=== PATIENT | male | born 1960 | race Caucasian/White ===

== ENCOUNTER 2017-06-10 09:22 | Inpatient (IN) | payer MEDICAID ==
[2017-06-10] VITALS (8 sets, daily range): BP systolic 100–130; BP diastolic 61–75; PULSE 57–99; RESP 14–18; TEMP 97.5–97.9; O2SAT 96–100
[~2017-06-10] VITALS: Ht 177.8 cm; Wt 90.0 kg
[2017-06-10] MEDS ORDERED: ACETAMINOPHEN/HYDROcodone 325 MG/5 MG TAB PO ONE (11:15)
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
[2017-06-10] MEDS ORDERED: PROPOFOL 200 MG/20 ML AMP IV ONE (12:00)
[2017-06-10] MEDS ORDERED: BRIL90TA PO (12:10)
[2017-06-10] MEDS ORDERED: ASCO500C PO (12:10)
[2017-06-10] MEDS ORDERED: RAMI10CA PO (12:10)
[2017-06-10] MEDS ORDERED: ASPI-516 CHEW (12:10)
[2017-06-10] MEDS ORDERED: LIPI80TA PO (12:10)
[2017-06-10] MEDS ORDERED: FURO1TAB62 PO (12:10)
[2017-06-10] MEDS ORDERED: METO25TA3 PO (12:10)
[2017-06-10] MEDS ORDERED: SODIUM CHLORIDE 0.9% FLUSH 10 ML FLUSH IVF PRN (12:15)
[2017-06-10] MEDS ORDERED: MORPHINE SULFATE 2 MG/ML INJ IV PUSH ONE (12:30)
[2017-06-10] MEDS ORDERED: ONDANSETRON HCL 4 MG/2 ML VIAL IV PUSH ONE (12:30)
--- NOTE | 2017-06-10 12:40 | RADRPT ---
EXAM DATE/TIME: 06/10/2017 12:27 [facility] COMPARISON: No previous studies available for comparison. INDICATIONS : Evaluate for pneumonia, pnemothorax, or communicable disease. Pre op for finger surgery. MEDICAL HISTORY : Hypertension. Myocardial infarction. SURGICAL HISTORY : CABG. Cardiac cath. Coronary stent. ENCOUNTER: Initial ACUITY: 1 day PAIN SCORE: 0/10 LOCATION: Bilateral chest FINDINGS: A single view of the chest demonstrates the lungs to be symmetrically aerated with minimal atelectati c changes above the left hemidiaphragm. Lungs otherwise clear. No effusions.. The cardiomediastinal contours are unremarkable. Osseous structures are intact with a mild levoscoliosis of the dorsal spi ne which may be positional. Findings of prior CABG with intact median sternotomy wires. Anterior fixa tion of lower cervical spine. CONCLUSION: No acute cardiopulmonary process. Sky Bush MD on June 10, 2017 at 12:36 Board Certified Radiologist. This report was verified electronically.
[2017-06-10] MEDS ORDERED: SODIUM CHLOR 0.9% 1000 ML INJ 1,000 ML IV SCH (12:41)
[2017-06-10] MEDS ORDERED: ceFAZolin 2 GM PREMIX 50 ML IV ONE (12:45)
[2017-06-10] MEDS: SODIUM CHLOR 0.9% 1000 ML INJ 1,000 ML IV SCH ×2 (12:56→22:36)
[2017-06-10] MEDS ORDERED: SODIUM CHLORIDE 0.9% FLUSH 10 ML FLUSH IV FLUSH PRN (13:00)
[2017-06-10 13:01] LABS: AUTOMATED NEUTROPHIL # 5.6 TH/MM3 (1.8-7.7); BASOPHIL % 0.2 % (0.0-2.0); EOSINOPHIL # 0.1 TH/MM3 (0-0.4); EOSINOPHIL % 1.9 % (0.0-4.0); HEMOGLOBIN 16.5 GM/DL (13.0-17.0); LYMPH % 21.3 % (9.0-44.0); LYMPHOCYTE # 1.7 TH/MM3 (1.0-4.8); MEAN CELL VOLUME 94.2 FL (80.0-100.0); MEAN CORPUSCULAR HEMOGLOBIN 32.3 PG (27.0-34.0); MEAN CORPUSCULAR HGB CONC 34.3 % (32.0-36.0); MEAN PLATELET VOLUME 8.7 FL (7.0-11.0); MONO % 6.2 % (0.0-8.0); MONOCYTE # 0.5 TH/MM3 (0-0.9); NEUT % 70.4 % (16.0-70.0); PLATELET COUNT 156 TH/MM3 (150-450); RED CELL DISTRIBUTION WIDTH 14.4 % (11.6-17.2)
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
--- NOTE | 2017-06-10 13:11 | PD ---
Physical Exam Date Seen by Provider: Jun 10, 2017 Time Seen by Provider: 12:00 Narrative I, Dr. Rice, have reviewed the advance practice practitioner's documentation and am in agreement, met with the patient face to face, made the diagnosis, and the medical decision making was done by me. *My assessment and Findings: Patient seen and evaluated with PA, please see PA note for further details. Here sent in by Dr. Lopez because he needs surgery for open fourth digit distal phalanx fracture which is displaced. However, he needs to get medical clearance from cardiology for the OR. Laboratory Tests Test 06/10/17 12:35 Neutrophils (%) (Auto) 70.4 % (16.0-70.0) Last 24 hours Impressions Chest X-Ray 06/10/17 1212 Signed Impressions: Service Date/Time: Saturday, June 10, 2017 12:27 - CONCLUSION: No acute cardiopulmonary process. Sky Bush MD Finger X-Ray 06/10/17 1106 Signed Impressions: Service Date/Time: Saturday, June 10, 2017 11:30 - CONCLUSION: Fracture distal tuft fourth digit as above. Thierno Torres MD FACR Case was discussed with Dr. Waddell who accepts the case, patient to be medically admitted for OR treatments. Data Data Last Documented VS Vital Signs Date Time Temp Pulse Resp B/P (MAP) Pulse Ox O2 Delivery O2 Flow Rate FiO2 06/10/17 12:32 100 Room Air 06/10/17 09:27 97.8 81 16 Orders Orders Finger ([id number]) (06/10/17 11:06) Ice/Cold Pack (06/10/17 11:06) Electrocardiogram (06/10/17 12:12) Complete Blood Count With Diff (06/10/17 12:12) Comprehensive Metabolic Panel (06/10/17 12:12) Prothrombin Time / Inr (Pt) (06/10/17 12:12) Act Partial Throm Time (Ptt) (06/10/17 12:12) Urinalysis - C+S If Indicated (06/10/17 12:12) Type And Screen (06/10/17 12:12) Chest, Single Ap (06/10/17 12:12) Iv Access Insert/Monitor (06/10/17 12:12) Oximetry (06/10/17 12:12) Ecg Monitoring (06/10/17 12:12) Sodium Chloride 0.9% Flush (Ns Flush) (06/10/17 12:15) Diet Npo (06/10/17 Lunch) Support Splint (06/10/17 12:27) Ondansetron Inj (Zofran Inj) (06/10/17 12:30) Morphine Inj (Morphine Inj) (06/10/17 12:30) Cefazolin 2 Gm Premix (Ancef 2 Gm Premix (06/10/17 12:45) Sodium Chlor 0.9% 1000 Ml Inj (Ns 1000 M (06/10/17 12:41) Labs Laboratory Tests Test 06/10/17 12:35 White Blood Count 8.0 TH/MM3 Red Blood Count 5.10 MIL/MM3 Hemoglobin 16.5 GM/DL Hematocrit 48.0 % Mean Corpuscular Volume 94.2 FL Mean Corpuscular Hemoglobin 32.3 PG Mean Corpuscular Hemoglobin Concent 34.3 % Red Cell Distribution Width 14.4 % Platelet Count 156 TH/MM3 Mean Platelet Volume 8.7 FL Neutrophils (%) (Auto) 70.4 % Lymphocytes (%) (Auto) 21.3 % Monocytes (%) (Auto) 6.2 % Eosinophils (%) (Auto) 1.9 % Basophils (%) (Auto) 0.2 % Neutrophils # (Auto) 5.6 TH/MM3 Lymphocytes # (Auto) 1.7 TH/MM3 Monocytes # (Auto) 0.5 TH/MM3 Eosinophils # (Auto) 0.1 TH/MM3 Basophils # (Auto) 0.0 TH/MM3 CBC Comment DIFF FINAL Differential Comment [facility] Medical Record Reviewed: Yes Supervised Visit with BABATUNDE: Yes Diagnosis Primary Impression: Finger fracture, left Qualified Codes: S62.635A - Displaced fracture of distal phalanx of left ring finger, initial encounter for closed fracture Admitting Information Admitting Physician Requests: it Josue Rice MD Jun 10, 2017 13:11
[2017-06-10 13:24] LABS: PROTHROMBIN TIME - PATIENT 9.7 SEC (9.8-11.6)
[2017-06-10 13:26] LABS: ALKALINE PHOSPHATASE 142 U/L (45-117); TOTAL BILIRUBIN ADULT 0.5 MG/DL (0.2-1.0); TOTAL PROTEIN 8.4 GM/DL (6.4-8.2)
[2017-06-10 13:29] LABS: ALBUMIN 4.4 GM/DL (3.4-5.0); ALT (GPT) 16 U/L (12-78); AST (GOT) 26 U/L (15-37); BLOOD UREA NITROGEN 18 MG/DL (7-18); CALCIUM 9.2 MG/DL (8.5-10.1); CHLORIDE 104 MEQ/L (98-107); CREATININE 1.67 MG/DL (0.60-1.30); GLOMERULAR FILTRATION RATE 42 ML/MIN (>89); GLUCOSE,RANDOM 76 MG/DL (74-106); SODIUM (NA) 142 MEQ/L (136-145)
[2017-06-10] MEDS ORDERED: diphenhydrAMINE HCL 25 MG CAP PO PRN (13:45)
[2017-06-10] MEDS ORDERED: ONDANSETRON HCL 4 MG/2 ML VIAL IV PUSH PRN (13:45)
[2017-06-10] MEDS ORDERED: diphenhydrAMINE HCL 50 MG/ML VIAL IV PUSH PRN (13:45)
[2017-06-10] MEDS ORDERED: MAGNESIUM HYDROXIDE SUSP 30 ML CUP PO PRN (13:45)
[2017-06-10] MEDS ORDERED: ACETAMINOPHEN 325 MG TAB PO PRN (13:45)
[2017-06-10] MEDS ORDERED: BISACODYL 10 MG SUPP RECTAL PRN (13:45)
[2017-06-10] MEDS ORDERED: LACTULOSE SYRUP 20 GM/30 ML CUP PO PRN (13:45)
[2017-06-10] MEDS ORDERED: MORPHINE SULFATE 2 MG/ML INJ IV PUSH PRN (13:45)
[2017-06-10] MEDS ORDERED: SENNOSIDES 8.6 MG TAB PO PRN (13:45)
[2017-06-10] MEDS ORDERED: NALOXONE HCL 0.4 MG/ML AMP IV PUSH PRN ×2 (13:45)
[2017-06-10] MEDS ORDERED: MORPHINE SULFATE 4 MG/ML INJ IV PUSH PRN ×2 (14:00)
[2017-06-10] MEDS ORDERED: SODIUM CHLORID 0.9% 500 ML INJ 500 ML IV ONE (17:30)
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
[2017-06-10] MEDS ORDERED: LIDOCAINE HCL 1% PF 10 ML VIAL ONE (19:14)
[2017-06-10] MEDS ORDERED: NEOMYCIN/POLYMYXIN 1 ML G.U. IRRIGANT ONE (19:19)
[2017-06-10] MEDS ORDERED: RESP: ALBUTEROL 2.5 MG/3 ML NEB (PRN) NEB (19:30)
[2017-06-10] MEDS ORDERED: cloNIDine HCL 0.1 MG TAB PO PRN (19:30)
[2017-06-10] MEDS ORDERED: MIDAZOLAM HCL 2 MG/2 ML VIAL ONE (19:55)
[2017-06-10] MEDS ORDERED: fentaNYL CITRATE 250 MCG/5 ML AMP ONE (19:55)
[2017-06-10] MEDS ORDERED: LIDOCAINE HCL 2% 50 ML VIAL ONE (20:48)
[2017-06-10] MEDS: METOPROLOL TARTRATE 25 MG TAB PO SCH (21:00)
[2017-06-10] MEDS: DOCUSATE SODIUM 100 MG CAP PO SCH (21:00)
[2017-06-10] MEDS ORDERED: ATORVASTATIN 80 MG TAB PO SCH (21:00)
[2017-06-10] MEDS: TICAGRELOR 90 MG TAB PO SCH (21:00)
[2017-06-10] MEDS: SODIUM CHLORIDE 0.9% FLUSH 10 ML FLUSH IV FLUSH SCH (21:00)
[2017-06-10] MEDS ORDERED: DO NOT ADM ANY ANTICOAGULANT DRUGS PRN (21:34)
[2017-06-10] MEDS ORDERED: *ONDANSETRON 4 MG VIAL PERIprocedural Use ONLY ONE (21:50)
[2017-06-10] MEDS ORDERED: *morphine SULFATE 4 MG/ML PERIprocedure ONLY ONE (21:50)
--- NOTE | 2017-06-10 22:09 | PD.ORT.PN ---
Subjective Subjective Remarks Pain controlled in PACU Objective Vitals Vital Signs Date Time Temp Pulse Resp B/P (MAP) Pulse Ox O2 Delivery O2 Flow Rate FiO2 06/10/17 22:00 62 12 118/74 (89) 95 Nasal Cannula 3 06/10/17 21:45 65 12 125/79 (94) 95 Nasal Cannula 3 06/10/17 21:35 69 12 111/68 (82) 95 Nasal Cannula 3 06/10/17 21:34 98.0 69 12 114/70 (85) 94 Nasal Cannula 3 06/10/17 20:00 97.9 71 18 110/67 (81) 97 06/10/17 17:15 97.5 57 16 100/61 (74) 96 06/10/17 15:42 97.8 99 18 115/69 (84) 100 06/10/17 13:00 66 14 106/75 (85) 100 Room Air 06/10/17 12:32 100 Room Air 06/10/17 12:30 122/64 (83) 06/10/17 09:27 97.8 81 16 130/69 (89) 99 I/O 06/09/17 06/09/17 06/09/17 06/10/17 06/10/17 06/10/17 07:00 15:00 23:00 07:00 15:00 23:00 Intake Total 400 ml Output Total 2 ml Balance 398 ml Other 400 ml Output Estimated Blood Loss 2 ml # Voids 1 Result Diagram: 06/10/17 1235 06/10/17 1235 Other Results Laboratory Tests Test 06/10/17 12:35 Prothromb Time International Ratio 1.0 RATIO Prothrombin Time 9.7 SEC (9.8-11.6) Imaging Last 24 hours Impressions Chest X-Ray 06/10/17 1212 Signed Impressions: Service Date/Time: Saturday, June 10, 2017 12:27 - CONCLUSION: No acute cardiopulmonary process. Sky Bush MD Finger X-Ray 06/10/17 1106 Signed Impressions: Service Date/Time: Saturday, June 10, 2017 11:30 - CONCLUSION: Fracture distal tuft fourth digit as above. Thierno Torres MD FACR Objective Remarks Dressing in place, <2 sec capillary refill Assessment & Plan Assessment and Plan 57yM POD0 s/p I&D left ring finger, pinning left ring finger, nailbed repair -Follow cultures, d/c on oral antibiotics -Okay to d/c per hand surgery, followup 1 week -Meds per primary team and cardiology Lien Waddell MD Jun 10, 2017 22:09
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
[2017-06-11] VITALS: BP 112/75; PULSE 79; RESP 20; TEMP 97.6; O2SAT 96
[2017-06-11] MEDS: SODIUM CHLOR 0.9% 1000 ML INJ 1,000 ML IV SCH (04:23)
[2017-06-11 08:12] LABS: AUTOMATED NEUTROPHIL # 4.8 TH/MM3 (1.8-7.7); BASOPHIL % 0.3 % (0.0-2.0); EOSINOPHIL # 0.1 TH/MM3 (0-0.4); EOSINOPHIL % 1.5 % (0.0-4.0); HEMATOCRIT 38.8 % (39.0-51.0); HEMOGLOBIN 13.4 GM/DL (13.0-17.0); LYMPH % 19.3 % (9.0-44.0); LYMPHOCYTE # 1.3 TH/MM3 (1.0-4.8); MEAN CELL VOLUME 93.6 FL (80.0-100.0); MEAN CORPUSCULAR HEMOGLOBIN 32.3 PG (27.0-34.0); MEAN CORPUSCULAR HGB CONC 34.5 % (32.0-36.0); MONOCYTE # 0.4 TH/MM3 (0-0.9); NEUT % 72.9 % (16.0-70.0); PLATELET COUNT 118 TH/MM3 (150-450); RED BLOOD COUNT 4.15 MIL/MM3 (4.50-5.90); WHITE BLOOD COUNT 6.6 TH/MM3 (4.0-11.0)
[2017-06-11 08:29] LABS: PROTHROMBIN TIME - PATIENT 10.5 SEC (9.8-11.6)
[2017-06-11] MEDS ORDERED: NORC5TAB PO (08:38)
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
--- NOTE | 2017-06-11 08:40 | HHI.DCPOC ---
Discharge Care Plan Diagnosis: (1) Finger fracture, left Goals to Promote Your Health * To prevent worsening of your condition and complications * To maintain your health at the optimal level Directions to Meet Your Goals Take your medications as prescribed Follow your dietary instruction Follow activity as directed Keep your appointments as scheduled Take your immunizations and boosters as scheduled If your symptoms worsen call your PCP, if no PCP go to Urgent Care Center or Emergency Room Smoking is Dangerous to Your Health. Avoid second hand smoke Call the 24-hour hour crisis hotline for domestic abuse at Lis Carrasco MD, R3 Jun 11, 2017 08:40
[2017-06-11] MEDS ORDERED: AUGM875T3 PO (08:44)
[2017-06-11 08:46] LABS: ALBUMIN 2.9 GM/DL (3.4-5.0); AST (GOT) 12 U/L (15-37); BICARBONATE 28.7 MEQ/L (21.0-32.0); BLOOD UREA NITROGEN 12 MG/DL (7-18); CHLORIDE 111 MEQ/L (98-107); CREATININE 0.85 MG/DL (0.60-1.30); GLOMERULAR FILTRATION RATE 93 ML/MIN (>89); GLUCOSE,RANDOM 91 MG/DL (74-106); SODIUM (NA) 146 MEQ/L (136-145)
[2017-06-11 08:49] LABS: ALKALINE PHOSPHATASE 103 U/L (45-117); ALT (GPT) 11 U/L (12-78); TOTAL BILIRUBIN ADULT 0.5 MG/DL (0.2-1.0); TOTAL PROTEIN 5.8 GM/DL (6.4-8.2)
[2017-06-11] MEDS: SODIUM CHLORIDE 0.9% FLUSH 10 ML FLUSH IV FLUSH SCH (09:00)
[2017-06-11] MEDS ORDERED: ASPIRIN 81 MG CHEW TAB CHEW SCH (09:00)
[2017-06-11] MEDS ORDERED: FUROSEMIDE 20 MG TAB PO SCH (09:00)
[2017-06-11] MEDS ORDERED: RAMIPRIL 5 MG CAP PO SCH (09:00)
[2017-06-11] MEDS ORDERED: ASCORBIC ACID 500 MG TAB PO SCH (09:00)
[2017-06-11] MEDS: DOCUSATE SODIUM 100 MG CAP PO SCH (09:18)
[2017-06-11] MEDS: METOPROLOL TARTRATE 25 MG TAB PO SCH (09:19)
[2017-06-11] MEDS: TICAGRELOR 90 MG TAB PO SCH (09:20)
--- NOTE | 2017-06-11 09:45 | MP ---
cc: LIEN WADDELL DATE OF SURGERY 06/10/2017 PREOPERATIVE DIAGNOSIS 1. Open displaced fracture left ring finger distal phalanx 2. Nail bed laceration left ring finger. POSTOPERATIVE DIAGNOSIS 1. Open displaced fracture left ring finger distal phalanx 2. Nail bed laceration left ring finger. PROCEDURE 1. Irrigation and debridement open fracture left ring finger distal phalanx. 2. Open reduction and pinning left ring finger distal phalanx 3. Nail bed repair left ring finger 4. Interpretation of fluoroscopy by the surgeon left ring finger throughout the procedure. SURGEON Dr. Lien Waddell ANESTHESIA MAC TOURNIQUET TIME None INDICATIONS FOR PROCEDURE Maurizio Philippe is a 57-year-old male who sustained an injury to his left ring finger approximately one week ago. He was seen by an outside physician, but was unable to undergo surgery due to his cardiac condition at an outpatient surgery center. He was referred to [facility] emergency room today for evaluation. He has been taking oral antibiotics. He does report some drainage over the area. He elected to proceed with surgical intervention. The risks were explained not limited to wound complications, infection, nail deformity, osteomyelitis, need for additional surgeries, stiffness, decreased range of motion and he elected to proceed. DESCRIPTION OF PROCEDURE The patient was identified in the preoperative holding area and the correct extremity was marked. The patient was taken to the operating room and the left upper extremity and draped in the normal sterile fashion. The nail plate was removed. There was a laceration at the proximal aspect of the nail bed. There was an open fracture which was then irrigated and debrided using antibiotic saline, curettes and rongeurs. Then an open reduction and pinning of the fracture was performed using a 4.5 K-wire. This was done under fluoroscopy and interpreted by the surgeon throughout the procedure. A Jurgan's ball was placed. This had good alignment of the fracture. Then the nail bed was repaired with chromic and the nail plate was replaced. The patient was placed into a soft dressing and a splint and awoken from anesthesia without any complications. Approximately 7 cc of 2% lidocaine with no epinephrine was used for local anesthesia. The patient will remain in the hospital on antibiotics and for cardiac evaluation. MD REGGIE Rojas/AYUSH /10:10 PM /9:35 AM JOSÉ LUIS
[2017-06-11] MEDS ORDERED: PERC10TA27 PO (09:54)
--- NOTE | 2017-06-11 13:33 | PD.CARD.PN ---
Subjective Subjective Remarks No CP or SOB, tolerated surgery well Objective Vital Signs / I&O Vital Signs Date Time Temp Pulse Resp B/P (MAP) Pulse Ox O2 Delivery O2 Flow Rate FiO2 06/11/17 00:00 97.6 79 20 112/75 (87) 96 06/10/17 23:44 76 06/10/17 22:00 62 12 118/74 (89) 95 Nasal Cannula 3 06/10/17 21:45 65 12 125/79 (94) 95 Nasal Cannula 3 06/10/17 21:35 69 12 111/68 (82) 95 Nasal Cannula 3 06/10/17 21:34 98.0 69 12 114/70 (85) 94 Nasal Cannula 3 06/10/17 20:00 97.9 71 18 110/67 (81) 97 06/10/17 20:00 69 06/10/17 17:15 97.5 57 16 100/61 (74) 96 06/10/17 15:42 97.8 99 18 115/69 (84) 100 I/O 06/10/17 06/10/17 06/10/17 06/11/17 06/11/17 06/11/17 07:00 15:00 23:00 07:00 15:00 23:00 Intake Total 400 ml 1000 ml Output Total 2 ml 400 ml Balance 398 ml 600 ml Intake IV Total 1000 ml Other 400 ml Output Urine Total 400 ml Estimated Blood Loss 2 ml # Voids 1 # Bowel Movements 0 Physical Exam GENERAL: In NAD SKIN: Warm and dry. HEAD: Normocephalic. EYES: No scleral icterus. No injection or drainage. NECK: Supple, trachea midline. No JVD or lymphadenopathy. CARDIOVASCULAR: Regular rate and rhythm without murmurs, gallops, or rubs. RESPIRATORY: Breath sounds equal bilaterally. No accessory muscle use. GASTROINTESTINAL: Abdomen soft, non-tender, nondistended. MUSCULOSKELETAL: No cyanosis, or edema. L ring finger dressed Laboratory Laboratory Tests Test 06/11/17 06:56 White Blood Count 6.6 TH/MM3 Red Blood Count 4.15 MIL/MM3 Hemoglobin 13.4 GM/DL Hematocrit 38.8 % Mean Corpuscular Volume 93.6 FL Mean Corpuscular Hemoglobin 32.3 PG Mean Corpuscular Hemoglobin Concent 34.5 % Red Cell Distribution Width 14.0 % Platelet Count 118 TH/MM3 Mean Platelet Volume 9.0 FL Neutrophils (%) (Auto) 72.9 % Lymphocytes (%) (Auto) 19.3 % Monocytes (%) (Auto) 6.0 % Eosinophils (%) (Auto) 1.5 % Basophils (%) (Auto) 0.3 % Neutrophils # (Auto) 4.8 TH/MM3 Lymphocytes # (Auto) 1.3 TH/MM3 Monocytes # (Auto) 0.4 TH/MM3 Eosinophils # (Auto) 0.1 TH/MM3 Basophils # (Auto) 0.0 TH/MM3 CBC Comment DIFF FINAL Differential Comment Prothrombin Time 10.5 SEC Prothromb Time International Ratio 1.0 RATIO Activated Partial Thromboplast Time 24.2 SEC Blood Urea Nitrogen 12 MG/DL Creatinine 0.85 MG/DL Random Glucose 91 MG/DL Total Protein 5.8 GM/DL Albumin 2.9 GM/DL Calcium Level 8.0 MG/DL Alkaline Phosphatase 103 U/L Aspartate Amino Transf (AST/SGOT) 12 U/L Alanine Aminotransferase (ALT/SGPT) 11 U/L Total Bilirubin 0.5 MG/DL Sodium Level 146 MEQ/L Potassium Level 3.2 MEQ/L Chloride Level 111 MEQ/L Carbon Dioxide Level 28.7 MEQ/L Anion Gap 6 MEQ/L Estimat Glomerular Filtration Rate 93 ML/MIN Assessment and Plan Problem List: (1) Finger fracture, left ICD Codes: S62.609A - Fracture of unspecified phalanx of unspecified finger, initial encounter for closed fracture Status: Acute (2) Coronary artery disease ICD Codes: I25.10 - Atherosclerotic heart disease of [place] coronary artery without angina pectoris Status: Chronic (3) Stented coronary artery ICD Codes: Z95.5 - Presence of coronary angioplasty implant and graft Assessment and Plan Remains stable from cardiac standpoint. Continue Brilinta and baby ASA. DC home. 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 Problem Qualifiers (1) Finger fracture, left: Qualified Codes: S62.635A - Displaced fracture of distal phalanx of left ring finger, initial encounter for closed fracture (2) Coronary artery disease: Qualified Codes: I25.810 - Atherosclerosis of coronary artery bypass graft(s) without angina pectoris Christina Little MD Jun 11, 2017 13:32
--- NOTE | 2017-06-11 14:23 | EKG ---
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 NO PREVIOUS TRACING DOCTOR: Marcio Coats Interpretating Date/Time 06/11/2017 14:21:59
== END 2017-06-11 10:57 | disposition home or self-care (01) | DRG 514 ==
LOC: NEPC 09:22 → NEDA 12:55 → NEDH 13:55 → N07B 15:50
PROVIDERS: ADMIT Family Medicine; ATTEND Family Medicine
PROC: 0HQQXZZ Repair Finger Nail, External Approach (ICD-10-PCS; 2017-06-10)
PROC: 0PSV04Z Reposition Left Finger Phalanx with Internal Fixation Device, Open Approach (ICD-10-PCS; principal; 2017-06-10 20:27)
DX: S62.635B Displaced fracture of distal phalanx of left ring finger, initial encounter for open fracture (principal); S61.315A Laceration without foreign body of left ring finger with damage to nail, initial encounter; W22.8XXA Striking against or struck by other objects, initial encounter; Y92.008 Other place in unspecified non-institutional (private) residence as the place of occurrence of the external cause; I25.2 Old myocardial infarction; I10 Essential (primary) hypertension; I25.10 Atherosclerotic heart disease of native coronary artery without angina pectoris; Z95.1 Presence of aortocoronary bypass graft; Z95.5 Presence of coronary angioplasty implant and graft; Z79.02 Long term (current) use of antithrombotics/antiplatelets; M47.9 Spondylosis, unspecified; E78.5 Hyperlipidemia, unspecified; Z91.19 Patient's noncompliance with other medical treatment and regimen
CPT/HCPCS: 71045; 73140; 76000; 80053; 80307; 85025; 85610; 85730; 86850; 86900; 86901; 87015; 87070; 87077; 87102; 87116; 87186; 87205; 87206; 93005; 96374; 96375; J0690; J2250; J2270; J2405; J3010; J7030